=== PATIENT | female | born 1940 | race Caucasian/White ===

== ENCOUNTER 2016-09-20 14:23 | Emergency (ER) | payer OTHER ==
[~2016-09-20 14:23] MED LIST: ASPIRIN EC81 MG PO; BUSPAR 10MG10 MG PO; CEFTIN250 MG PO; CELEXA10 MG PO; COLACE100 MG PO; GLUCOPHAGE 500500 MG PO; ISOSORBIDE DINI30 MG PO; LANTUS100 UNIT/1 SQ; LEVEMIR FL100 UNIT/1 SQ; LISINOPRIL20 MG PO; METOPROLOL TART50 MG PO; NORCO 7.5-3251 EACH PO; NORVASC2.5 MG PO; OMEPRAZOLE20 MG PO; PERCOCET 7.5-31 EACH PO; PLAVIX75 MG PO; SIMVASTATIN10 MG PO
[2016-09-20 18:51] LABS: RED BLOOD COUNT 4.86 M/UL (4.00-5.10)
== END 2016-09-20 20:13 | disposition home or self-care (01) ==
LOC: ER1 14:23
PROVIDERS: Family Medicine
DX: R10.2 Pelvic and perineal pain (principal); E11.65 Type 2 diabetes mellitus with hyperglycemia; R30.0 Dysuria; M54.5 Low back pain; I10 Essential (primary) hypertension; E78.5 Hyperlipidemia, unspecified; Z88.2 Allergy status to sulfonamides; Z88.5 Allergy status to narcotic agent; Z79.82 Long term (current) use of aspirin; Z79.84 Long term (current) use of oral hypoglycemic drugs; Z79.899 Other long term (current) drug therapy
CPT/HCPCS: 80053; 81001; 83690; 85025; 87086; 99284